=== PATIENT | female | born 1970 ===

== ENCOUNTER 2021-04-19 07:56 | Outpatient (CLI) | payer OTHER, SELFPAY ==
--- NOTE | 2021-05-03 11:51 | WPDSLEEPSTUD ---
Sleep Study Date of Study: 04/19/21 <Kaci Macario DO - Last Filed: 05/03/21 16:54> Ordering Provider: Osmel Gonzalez MD <Kaci Macario DO - Last Filed: 05/03/21 16:54> Interpreting Physician: Kaci Macario DO <Kaci Macario DO - Last Filed: 05/03/21 16:54> Sleep Study Type: Polysomnogram <Kaci Macario DO - Last Filed: 05/03/21 16:54> Height: 1.7 m <Kaci Macario DO - Last Filed: 05/03/21 16:54> Weight: 98.883 kg <Kaci Macario DO - Last Filed: 05/03/21 16:54> Body Mass Index: 34.1 <Kaci Macario DO - Last Filed: 05/03/21 16:54> Neck Circumference (inches): 14 <Kaci Macario DO - Last Filed: 05/03/21 16:54> [place]: 10 <Kaci Macario DO - Last Filed: 05/03/21 16:54> Reason for Sleep Study Snoring, unrefreshing sleep, Morning headaches <Kaci Macario DO - Last Filed: 05/03/21 16:54> Sleep History Patient is a 51-year-old female with hypertension and seasonal allergies. She said had a sleep study ordered by her ENT physician for evaluation of sleep apnea. She rarely awakens from sleep short of breath. She rarely awakens at night with heartburn, belching or cough. She frequently snores and is frequently loudly enough that others complain. She frequently has trouble sleeping when she has a cold. She rarely wakes up gasping for air throughout the night. She rarely has breathing problems at night observed by others. She occasionally sweats excessively at night. She occasionally has heart palpitations or irregular heartbeats during the night. She she rarely falls asleep during the day and never while driving. She denies cataplexy. She rarely feels unable to move or waking up for falling asleep. She rarely has trouble at work due to sleepiness. She denies hypnagogic / hypnopompic hallucinations. She rarely has nightmares. She rarely has thoughts racing through her mind. She occasionally feels sad, depressed and anxious. She denies noticing parts of her body jerk. She denies kicking throughout the night. She denies crawling and aching feelings in her legs. She rarely has leg pain during the night. She occasionally grinds her teeth during sleep but denies waking up with morning jaw pain. She is rarely bothered by pain during the day and rarely awakened by pain during the night. She wakes up occasionally feeling stiff in the morning. She rarely wakes up with sore and achy muscles. She goes to bed between 10:00 p.m. and midnight on week days in between 10:00 p.m. and 11:00 p.m. on the weekends. She can fall asleep relatively quickly. She wakes up multiple times throughout the night. When she awakens, she will ties and turned, occasional look at her fall or get. It can take her up to 2 hours to fall back asleep. She wakes up at 6:00 a.m. on weekdays and 7:00 a.m. on the weekends. She typically gets 5-6 hours of sleep per night. She will not stay in bed long after waking up in the morning. She currently lives with her 18-year-old daughter. She denies consuming any caffeinated beverages within 2 hours of bedtime. She does not engage in physical exercise before bedtime. She will read and watch television before falling asleep. She does not take naps in the afternoon or the evening. She drinks 1-2 glasses of caffeinated tea per day. She drinks 2-3 alcoholic beverages per week. She denies tobacco or recreational drug use. <Kaci Macario DO - Last Filed: 05/03/21 16:54> [facility] Past Medical History Medical History: Medical History Hypertension <Kaci Macario DO - Last Filed: 05/03/21 16:54> Medications Home Medications: Home Medications Medication Instructions Recorded Confirmed Type metoprolol succinate 25 mg PO DAILY 05/03/21 05/03/21 History <Kaci Macario, - Last Filed: 05/03/21 1
[2021-05-03 16:36] VITALS: BMI 34.1
== END 2021-04-20 07:40 | disposition home or self-care (01) ==
LOC: ANHCSM 07:57
PROVIDERS: PCP Emergency Medicine; Visit Provider Otolaryngology
DX: R06.83 Snoring (principal)
CPT/HCPCS: 95810